=== PATIENT | female | born 1975 | race Caucasian/White ===

== ENCOUNTER 2016-11-23 08:41 | Outpatient (CLI) | payer OTHER | END 2016-11-23 08:42 | disposition home or self-care (01) | DX: R10.12 Left upper quadrant pain (principal) ==

== ENCOUNTER 2017-12-20 08:00 | Outpatient (CLI) | payer OTHER ==
[2017-12-20 18:51] LABS: HGB - HEMOGLOBIN 14.1 g/dL (12.0-16.0); MEAN CORPUSCULAR HEMOGLOBIN 31.7 pg (27.0-31.0); MEAN CORPUSCULAR HGB CONC 33.7 g/dL (32.0-36.0); MEAN CORPUSCULAR VOLUME 94.3 fL (81.0-99.0); RED BLOOD COUNT 4.46 10^6/uL (4.20-5.40); RED CELL DISTRIBUTION WIDTH 13.2 % (12.0-15.0); WHITE BLOOD COUNT 9.4 x10^3/uL (4.8-10.8)
[2017-12-20 19:36] LABS: THYROID STIMULATING HORMONE 1.18 uIU/mL (0.34-5.60)
[2017-12-20 19:38] LABS: FREE T4 (FREE THYROXINE) 0.8 ng/dL (0.58-1.64)
[2017-12-20 20:03] LABS: FOLLICLE STIMULATING HORMONE 0.83 mIU/mL
== END 2017-12-20 08:01 | disposition home or self-care (01) ==
LOC: LAB.N 08:00
PROVIDERS: ATTEND Obstetrics & Gynecology
DX: R53.83 Other fatigue (principal)
CPT/HCPCS: 36415; 83001; 84439; 84443; 84481

== ENCOUNTER 2018-09-30 08:00 | Outpatient (CLI) | payer OTHER ==
[2018-09-30 05:59] LABS: HCG UR QUAL NEGATIVE
== END 2018-09-30 23:59 | disposition home or self-care (01) ==
LOC: LAB.R 08:00
PROVIDERS: ATTEND Obstetrics & Gynecology
DX: Z30.2 Encounter for sterilization (principal)
CPT/HCPCS: 81025

== ENCOUNTER 2018-10-01 06:10 | Day surgery (SDC) | payer OTHER ==
--- NOTE | 2018-09-29 11:09 | PREOP HISTORY & PHYSICAL ---
DATE OF ADMISSION: 10/01/2018 IDENTIFICATION: A 42-year-old G5, P4-0-1-4. HISTORY OF PRESENT ILLNESS: This is a patient of [facility], presents today on 09/29/2018 for a preoperative visit. She has been scheduled for 10/01/2018 bilateral salpingectomy for permanent sterilization. Currently patient is doing well and is accompanied by her , Emile. I discussed with patient in great detail the risks, benefits, alternatives, indications, and expectations of laparoscopic bilateral salpingectomy. Included in our discussion were the risks of hemorrhage, infection, damage to surrounding organs which may include, but are not limited to inadvertent laceration, cauterization or ligation of adjacent intestines, bladder, and ureters. With the surgery, patient understands it is permanent and irreversible. There is a 1% chance of tubal failure, and she needs to contact me immediately should she feel like she is after this operation. She already understands that sterilization is not her only form of contraception, and she has options of control pills, Ortho Evra, NuvaRing, Nexplanon, the IUDs, and vasectomy for her . After patient's questions were answered to her satisfaction, she verbalized her desire to proceed with surgery. Consent forms have been signed. PAST MEDICAL HISTORY: None. PAST SURGICAL HISTORY: None. ALLERGIES: NO KNOWN DRUG ALLERGIES. MEDICATIONS: None. SOCIAL HISTORY: She denies tobacco, alcohol, or illicit drug use. She is a homemaker. Patient is a mother of 4 children, and her oldest child Sallis recently had a baby boy. She has a stepdaughter named Jenni. Patient likes to go to [facility] in [place] as her pharmacy of choice. PAST SURGICAL HISTORY: Four term spontaneous vaginal deliveries. Last delivery was a shoulder dystocia. One spontaneous PAST GYNECOLOGIC HISTORY: On control pills she had nausea and vomiting. On Depo-Provera she has decreased libido and "attitude." She does have a history of heavy clots and bleeding. She also has some dysmenorrhea and must take pcpw-pnq-oigiifw analgesics. She is a poor pill taker. Pap smear review shows a 02/22/2011 Pap smear with ASCUS with a negative high-risk HPV. On 11/13/2011 Pap smear and HPV were both negative as well as a 11/16/2016 pap smear and HPV. FAMILY HISTORY: Noncontributory. REVIEW OF SYSTEMS: Negative unless otherwise stated. PHYSICAL EXAMINATION VITAL SIGNS: Height is 63.75 inches, weight 129 pounds, BMI 22.4, blood pressure 122/70. GENERAL: Patient is a well-developed, well-nourished, female, in no apparent distress. She is alert and oriented x3. HEENT: Within normal limits. CARDIOVASCULAR: Rate is regular. No murmurs or rubs. PULMONARY: Lungs clear to auscultation bilaterally. ABDOMEN: Soft, nontender, no peritoneal signs. ASSESSMENT 1. A 42-year-old G5, P4-0-1-4. 2. Desires permanent sterilization. PLAN 1. She already has signed consent forms. She is also under the understanding that this surgery is meant for her to be sterilized. It will not affect her ovulation, nor her menstrual cycles. 2. Patient will get a urine test today in preparation for surgery. 3. I have counseled patient to take ibuprofen and Tylenol as her main form of pain control. She was also given a prescription for Vicodin 5/325 #20 tablets for any breakthrough pain she may experience. 4. Patient is to call should she have any worsening fever, chills, abdominal pain, or vaginal bleeding. 5. Patient is to see me in 2 weeks for routine postoperative examination. TD: 09/29/2018 10:42 MTDD
[2018-10-01] MEDS ORDERED: ACETAMINOPHEN 1,000 MG/100 ML 100 ML IV ONE (06:30)
[2018-10-01] MEDS ORDERED: CELECOXIB 100 MG CAPSULE PO ONE (06:31)
[2018-10-01] MEDS ORDERED: GABAPENTIN 400 MG CAPSULE ONE (06:32)
[2018-10-01] MEDS ORDERED: LACTATED RINGERS 1,000 ML IV ONE (06:47)
--- NOTE | 2018-10-01 06:58 | ANESTHESIA ---
Pre-Anesthesia VS, & Labs - Diagnosis Desires permanent sterilization - Procedure Lap salpingectomy Vital Signs: Temp Pulse Resp BP Pulse Ox 36.4 C L 93 18 122/72 98 10/01/18 06:35 10/01/18 06:35 10/01/18 06:35 10/01/18 06:35 10/01/18 06:35 Height 5 ft 4 in Weight (kg) 58 kg - NPO >8 hours - Is Patient ?: No Home Medications and Allergies Home Medications: Ambulatory Orders Norelgestromin/Ethin.estradiol [Xulane Patch] 1 each TD ONCE 09/29/18 Norelgestromin/Ethin.estradiol [Xulane Patch] 1 each TD ONCE 09/29/18 Anes History & Medical History - Anesthetic History Anesthesia Complications: reports: No previous complications Family history of Anesthesia Complications: Denies Family history of Malignant Hyperthermia: Denies - Medical History Cardiovascular: reports: Murmur Pulmonary: reports: None Gastrointestinal: reports: None Urinary: reports: None Neuro: reports: None Musculoskeletal: reports: None Endocrine/Autoimmune: reports: None Blood Disorders: reports: None Skin: reports: None Smoking Status: Never smoker Psychosocial: reports: No issues indicated - Surgical History General: Cholecystectomy Gynecologic: section, Dilation and currettage Exam General: Alert Dental: WNL Mouth Opening: Greater than 4 Fingerbreadths Neck Mobility: Normal Mallampati classification: I Thyromental Distance: greater than 6 cm Respiratory: Lungs clear Cardiovascular: Regular rate Neurological: Normal speech Mental/Cognitive Status: Alert/Oriented X3 Cognitive Status: Within normal limits Plan Anesthesia Type: General Consent for Procedure(s) Verified and Reviewed: Yes Code Status: Attempt Resuscitation ASA classification: 1-Healthy patient Is this case an emergency?: No
[2018-10-01] MEDS ORDERED: LIDOCAINE MPF 1%-EPI 1:200000 10 ML VIAL ID ONE (07:53)
[2018-10-01] MEDS ORDERED: DEXAMETHASONE 4 MG/ML VIAL IVP ONE (08:00)
[2018-10-01] MEDS ORDERED: ROCURONIUM 50 MG/5 ML VIAL IVP ONE (08:00)
[2018-10-01] MEDS ORDERED: ONDANSETRON 4 MG/2 ML VIAL IVP ONE (08:00)
[2018-10-01] MEDS ORDERED: NEOSTIGMINE 1 MG/1 ML 10 ML MDV IVP ONE (08:00)
[2018-10-01] MEDS ORDERED: GLYCOPYRROLATE 1 MG/5 ML VIAL IVP ONE (08:00)
[2018-10-01] MEDS ORDERED: fentaNYL 100 MCG/2 ML VIAL IVP ONE (08:00)
[2018-10-01] MEDS ORDERED: LIDOCAINE-MPF 2% 5 ML VIAL IM ONE (08:00)
[2018-10-01] MEDS ORDERED: MIDAZOLAM 2 MG/2 ML VIAL IVP ONE (08:00)
[2018-10-01] MEDS ORDERED: PROPOFOL 200 MG/20 ML VIAL IVP ONE (08:00)
[2018-10-01] MEDS ORDERED: LORazepam 2 MG/ML VIAL IVP PRN (08:14)
[2018-10-01] MEDS ORDERED: HYDROcod/ACETAM 5/325 MG TABLET PO PRN (08:14)
[2018-10-01] MEDS ORDERED: HYDROmorphone 0.5 MG/0.5 ML SYRINGE IVP PRN (08:14)
[2018-10-01] MEDS ORDERED: ONDANSETRON 4 MG/2 ML VIAL IVP PRN (08:14)
--- NOTE | 2018-10-01 08:18 | OPERATIVE REPORT ---
Operative Report - Other Other Information/Narrative: Date of operation: 10/01/2018 Surgeon: Sarah Beth Contreras DO FACOG Robot Operator: None Quality Assurance Supervisor Chassis: Ling Montgomery CRNA Anesthesia: GET Pre-op Dx: 1. 42 yo 2. Desired permanent sterilization Post-op Dx: 1. 42 yo 2. Desired permanent sterilization Procedure: Laparoscopic bilateral salpingectomy Findings: Normal uterus, fallopian tubes and ovaries. Normal appendix and liver edge. Specimens: Left and right fallopian tubes. Right fallopian tube tagged. Drains: None EBL: 5 mL Complications: None [id number]
--- NOTE | 2018-10-01 09:38 | OPERATIVE REPORT ---
Date of Operation: 10/01/2018 SURGEON: Sarah Beth Contreras DO, FACOG THERMAL CUTTING TRACER MACHINE OPERATOR: None. QUALITY ASSURANCE PROJECT MANAGER: Ling Montgomery CRNA. ANESTHESIA: General via endotracheal tube. PREOPERATIVE DIAGNOSES 1. A 42-year-old G5, P4-0-1-4. 2. Desired permanent sterilization. POSTOPERATIVE DIAGNOSES 1. A 42-year-old G5, P4-0-1-4. 2. Desired permanent sterilization. PROCEDURE: Laparoscopic bilateral salpingectomy. FINDINGS: Normal uterus, fallopian tubes, and ovaries. Normal appendix and liver edge. SPECIMENS: Left and right fallopian tubes. Right fallopian tube was tagged. DRAINS: None. ESTIMATED BLOOD LOSS: 5 mL. COMPLICATIONS: None. HISTORY OF PRESENT ILLNESS: This is a patient of [facility] who presented with desire for permanent sterilization. Discussed with the patient the risks, benefits, alternatives, indications, and expectations of the laparoscopic bilateral salpingectomy. Included discussion were the risks of hemorrhage, infection, damage to surrounding organs, which may be an inadvertent laceration, cauterization or ligation of the adjacent intestines, bladder and ureters. Furthermore, she understands that this surgery is permanent, and is irreversible. She has other forms of control available to her including vasectomy, control pills, the patch, Depo-Provera, the NuvaRing, Mirena IUD, ParaGard IUD. There was a small, less than 1% chance of after this procedure, and should the patient feel she has symptoms of , she is to call me immediately as she is at increased risk of ectopic . After all the patient's questions were answered to her satisfaction, she verbalized her desire to proceed with surgery. Consent forms have been signed. OPERATION IN DETAIL: The patient was identified and consented, taken to the operating room where IV access was already in place. She was then given sequential compression devices, which were placed on the lower extremities and turned on. The patient was then prepped and draped in normal sterile fashion in the supine position. Her left arm was tucked. Timeout was performed, which correctly identified the patient, site of the procedure, and the procedure itself. Antibiotics were not indicated in this case. Three laparoscopic port sites were first identified. They were all 5 mm in length, and located in the subumbilical fold, the right lower quadrant and left lower quadrant. Lower quadrant incision sites were found by identifying the respective anterior superior iliac spine and moving two fingerbreadths superior and medial to those locations. All three port sites were injected with a total of 10 mL of 1% lidocaine with epinephrine prior to incision. Entrance in the abdomen was made in the subumbilical fold incision site. There was no trauma to intraabdominal organs noted upon entry into the abdomen. CO2 gas was then used to insufflate the abdomen, thus obtaining satisfactory pneumoperitoneum. The two other port sites were then placed under direct visualization of the camera. The pelvis was visually inspected and the uterus, fallopian tubes, and ovaries were found to be within normal limits. The appendix was noted, as well as the liver edge. All structures were within normal limits. Attention was then turned towards the pelvis. The right fallopian tube was identified and followed out to its fimbriated end. The right fallopian tube was then excised using the LigaSure. In a similar fashion, the left fallopian tube was excised. The edges of the salpingectomy were found to be hemostatically stable. At this point in time, the procedure had been completed. All instruments were removed of the abdomen, and CO2 gas was allowed to egress into the atmosphere, thus relieving the pneumoperitoneum. Three laparoscopic port sites were closed with single interrupted stitches of 4-0 Vicryl in a subcuticular fashion. Dermabond was placed on top of the incisions. All sponge, lap and needle counts were correct x 2 as per RN report. The patient tolerated the procedure well, and was taken back to the recovery room in stable condition. She will be discharged to home later today after postoperative criteria are met. She has been instructed to take rhtq-kjx-vnmkffp ibuprofen and Tylenol for her pain control. She also has a prescription for Vicodin for any breakthrough pain, she may incur. The patient is to see me at [facility] in two weeks for routine postoperative visit. TD: 10/01/2018 08:35 YENI
[2018-10-01 10:24] VITALS: BP 116/70
== END 2018-10-01 06:11 | disposition home or self-care (01) ==
LOC: SDS 06:10
PROVIDERS: ATTEND Obstetrics & Gynecology
PROC: 0UT74ZZ Resection of Bilateral Fallopian Tubes, Percutaneous Endoscopic Approach (ICD-10-PCS; principal; 2018-10-01 07:30)
DX: Z30.2 Encounter for sterilization (principal)
CPT/HCPCS: 58661; A9270; J0131; J3490; J7120

== ENCOUNTER 2020-01-09 18:04 | Emergency (ER) | payer BC, OTHER ==
[2020-01-09 18:11] VITALS: BP 129/64
[2020-01-09] MEDS ORDERED: KETOROLAC 10 MG TABLET PO STA (18:30)
--- NOTE | 2020-01-09 18:31 | ED Physician Documentation ---
PD HPI LOWER EXT INJURY - Stated complaint Stated Complaint: RT HIP PX - Chief complaint Chief Complaint: Ext Problem - History obtained from History obtained from: Patient (44-year-old woman with no possibility of presents with right hip pain starting yesterday. There was no significant injury or trauma. She had a similar episode a couple of years ago and was seen by DO and diagnosed with pelvic tilt and had a manipulation that was partially successful. Recurred yesterday. No numbness or tingling in the leg. No saddle anesthesia. No fevers. She is able to walk and bear weight and it is worse when she is sitting or laying) Review of Systems Constitutional: denies: Fever, Chills Cardiac: denies: Chest pain / pressure, Palpitations Respiratory: denies: Dyspnea, Cough GI: denies: Abdominal Pain, Nausea, Vomiting PD PAST MEDICAL HISTORY - Past Medical History Cardiovascular: Murmur Respiratory: None Neuro: Migraines Endocrine/Autoimmune: None GI: None SOFTWARE TOOLS ENGINEER: None : None HEENT: None Psych: None Musculoskeletal: None Derm: None - Past Surgical History General: Cholecystectomy /SOFTWARE TOOLS ENGINEER: Dilation and currettage - Present Medications Home Medications: Ambulatory Orders Medication Instructions Recorded Confirmed Norelgestromin/Ethin.estradiol 1 each TD ONCE 09/29/18 10/01/18 [Xulane Patch] Hydrocodone/Acetaminophen 1 - 2 each PO Q6H PRN #14 tablet 01/09/20 [Hydrocodon-Acetaminophen 5-325] predniSONE [Deltasone] 20 mg PO [id number] #21 tab 01/09/20 - Allergies Allergies/Adverse Reactions: Allergies Allergy/AdvReac Type Severity Reaction Status Date / Time No Known Drug Allergies Allergy Verified 01/09/20 18:06 - Social History Does the pt smoke?: No Smoking Status: Never smoker Does the pt have substance abuse?: No - POLST Patient has POLST: No PD ED PE NORMAL - Vitals Vital signs reviewed: Yes - General General: Alert and oriented X 3, No acute distress - Abdomen Abdomen: Soft, Non tender - Back Back: Other (She does have pain with internal and external rotation of the right hip. No tenderness of the lumbar spine. The right patellar reflex is diminished compared to the left, but there is no sensory deficit on the right. Gait is normal.) - Neuro Neuro: Alert and oriented X 3, Normal speech Results - Vitals Vitals: Vital Signs - 24 hr 01/09/20 01/09/20 18:07 19:28 Temperature 37.4 C Heart Rate 103 H 79 Respiratory 16 Rate Blood Pressure 129/64 O2 Saturation 99 100 Oxygen O2 Source Room air - Rads (name of study) X-rays of the right hip and lumbar spine Radiology: EMP read contemporaneously (Right hip x-ray did demonstrates mild osteoarthritic changes, lumbar spine x-ray demonstrates mild degenerative facet osteoarthritic changes.) PD MEDICAL DECISION MAKING - ED course ED course: 44-year-old woman presents with right hip pain, more consistent with sciatica than it is with hip issue. Initially did not want any pain medications but changed her mind prior to discharge. This patient has seemingly uncomplicated musculoskeletal back pain. The patient has no "red flags." Specifically denies IV drug use, fevers, incontinence, saddle anesthesia. Spinal epidural abscess was considered, given that the patie nt has no fever, is not diabetic, has no spinal tenderness, does not use IV drugs, and has no bilateral neurologic symptoms, the diagnosis of spinal epidural abscess is considered exceedingly unlikely. Departure - Departure Disposition: Home, Self Care Clinical Impression: Right hip pain, Sciatic leg pain Condition: Good Record reviewed to determine appropriate education?: Yes Instructions: ED Sciatica Prescriptions: Hydrocodone/Acetaminophen [Hydrocodon-Acetaminophen 5-325] 1 - 2 each PO Q6H PRN #14 tablet PRN Reason: pain predniSONE [Deltasone] 20 mg PO [id number] #21 tab Comments: You were seen for pain near the right hip today. Based on your x-rays I think this is a combination of sciatica and mild arthritis of the hip. The steroids and pain meds should help. Follow-up with your doctor, consider physical therapy referral. Return for new or worsening symptoms. Do not drink or drive while taking narcotic pain medication. Note that many narcotic pain relievers also contain Tylenol/acetaminophen. Please ensure that your total dose of acetaminophen from all sources does not exceed 3 g (3000 mg) per day. You may get constipated while on this medication. Take a stool softener such as Colace twice a day while you are on it. Also add an tupy-gjf-hjgywfc laxative such as senna or MiraLAX on any day that you do not have a bowel movement. If you received a narcotic pain medication or sedative while in the emergency department, do not drive for the next 24 hours. Discharge Date/Time: 01/09/20 19:29
--- NOTE | 2020-01-09 19:07 | XRAY Report ---
Reason: hip pain Procedure Date: 01/09/2020 Accession Number: [id number] / [id number] Procedure: XR - Lumbar Spine 2 View CPT Code: Final Report FULL RESULT: EXAM: LUMBOSACRAL SPINE RADIOGRAPHY EXAM DATE: 01/09/2020 06:58 PM. CLINICAL HISTORY: Hip pain. COMPARISONS: Lower back pain.. TECHNIQUE: 2 views. FINDINGS: Alignment: Normal. No spondylolisthesis or scoliosis. Bones: Five ord-jtd-dkrxfil lumbar vertebral bodies are present. No fractures or bone lesions. Disks: Normal. Disk heights are maintained. Facets: Mild degenerative changes present. Sacroiliac Joints: Unremarkable. Soft Tissues: Post cholecystectomy clips seen about the right upper quadrant. The visualized bowel gas pattern is normal. IMPRESSION: Mild degenerative facet osteoarthritic changes without acute fracture. RADIA
--- NOTE | 2020-01-09 19:08 | XRAY Report ---
Reason: hip pain Procedure Date: 01/09/2020 Accession Number: [id number] / [id number] Procedure: XR - Hip w/Pelvis 2-3V RT CPT Code: Final Report FULL RESULT: EXAM: RIGHT HIP RADIOGRAPHY EXAM DATE: 01/09/2020 06:58 PM. CLINICAL HISTORY: Hip pain. COMPARISON: None. TECHNIQUE: 2 views. FINDINGS: Bones: Normal. No fractures or bone lesion. Joints: Minimal osteoarthritic changes present. No dislocation. The hip joint space is preserved. Soft Tissues: Cholecystectomy clips seen over the right upper quadrant. No soft tissue swelling. IMPRESSION: Minimal osteoarthritic changes present without acute fracture. RADIA
[2020-01-09] MEDS ORDERED: HYDROcod/ACET 5/325 Prepack 4 PO STA (19:16)
[2020-01-09] MEDS ORDERED: predniSONE 20 MG TABLET PO STA (19:17)
== END 2020-01-09 19:29 | disposition home or self-care (01) ==
LOC: ED 18:04
DX: M25.551 Pain in right hip (principal); M54.31 Sciatica, right side
CPT/HCPCS: 72100; 73502; 99283; 99284; A9270; J7512